=== PATIENT | male | born 1960 | race Caucasian/White ===

== ENCOUNTER → 2019-10-14 | Outpatient (CLI) | payer BC ==
--- NOTE | 2019-10-14 15:54 | RAD ---
Examination: Ultrasound soft tissue neck HISTORY: History of lump posterior neck for 2 weeks COMPARISON: None available Findings/ impression: Ultrasound of the right posterior neck demonstrates 2.3 x 0.9 x 2.4 cm hyperechogenicity in the subcutaneous region probably a lipoma. Electronically signed by: Sarath Barba MD (10/14/2019 3:50 PM) [place] [id number]
== END | disposition home or self-care (01) ==
LOC: US 13:40
PROVIDERS: ATTEND Family Medicine
DX: R22.1 Localized swelling, mass and lump, neck (principal)
CPT/HCPCS: 76536